=== PATIENT | female | born 1960 | race Caucasian/White ===

== ENCOUNTER 2017-08-10 15:31 | Emergency (ER) | payer OTHER ==
[~2017-08-10] VITALS: Ht 162.6 cm; Wt 70.0 kg
[~2017-08-10 15:31] MED LIST: AMBI10TA PO; LISI-515 PO; XANA2TAB2 PO
[2017-08-10 15:44] VITALS: BP 152/84; PULSE 89; RESP 18; TEMP 97.6; O2SAT 92
[2017-08-10] MEDS ORDERED: SODIUM CHLOR 0.9% 1000 ML INJ 1,000 ML IV ONE ×2 (15:47→16:00)
[2017-08-10 15:58] VITALS: BP 152/84; PULSE 91; RESP 18; TEMP 97.6; O2SAT 97
[2017-08-10 16:00] VITALS: BP 152/84; PULSE 91; RESP 18; TEMP 97.6; O2SAT 97
[2017-08-10] MEDS ORDERED: ACTIVATED CHARCOAL LIQUID 25 GM/120 ML BTL PO/NG ONE (16:00)
[2017-08-10] MEDS ORDERED: SODIUM CHLORIDE 0.9% FLUSH 10 ML FLUSH IVF PRN (16:00)
--- NOTE | 2017-08-10 16:16 | PD ---
HPI Chief Complaint: OD/ Ingestion Time Seen by Provider: 15:43 Travel History International Travel<30 days: No Contact w/Intl Traveler<30days: No Traveled to known affect area: No History of Present Illness HPI The patient is 56 years old and arrives by EMS. She ingested an unknown quantity of Xanax. The prescription bottle was for quantity of 60 tablets. The dose was 2 mg each. The patient here states she might have ingested them at 3 PM however does not answer questions. She denies alcohol abuse however EMS reports she vomited what appeared to be wine emesis. Patient states kill me here in the emergency department e. She is a Bro Act. History is limited in this scenario. PFSH Past Medical History Anxiety: Yes Depression: Yes Diminished Hearing: No Hypertension: Yes Insomnia: Yes Tetanus Vaccination: Unknown Influenza Vaccination: No ?: Not Menopausal: Yes Ovarian Cysts: Yes (R) Dilation and Curettage (D&C): Yes Past Surgical History Surgical History: No Previous Surgery Social History Alcohol Use: No (QUIT ~ 1 MONTH AGO; AVERAGED 2 BEERS Q OTHER DAY) Tobacco Use: Yes (1ppd) Substance Use: No Allergies-Medications (Allergen,Severity, Reaction): Coded Allergies: No Known Allergies (Unverified Adverse Reaction, Unknown, 08/10/17) Reported Meds & Prescriptions Reported Meds & Active Scripts Active Reported Ambien (Zolpidem Tartrate) 10 Mg Tab 10 Mg PO HS PRN Xanax (Alprazolam) 2 Mg Tab 2 Mg PO BID PRN Lisinopril 20 Mg Tab 20 Mg PO DAILY Review of Systems Except as stated in HPI: all other systems reviewed are Neg General / Constitutional: No: Fever Physical Exam Narrative GENERAL: 56-year-old female moderate distress secondary to drug overdose Vital Signs Date Time Temp Pulse Resp B/P (MAP) Pulse Ox O2 Delivery O2 Flow Rate FiO2 08/10/17 16:00 97.6 91 18 152/84 (106) 97 Nasal Cannula 3.00 08/10/17 15:58 97.6 91 18 152/84 (106) 97 Nasal Cannula 3.00 08/10/17 15:53 91 18 95 Nasal Cannula 3.00 08/10/17 15:44 97.6 89 18 152/84 (106) 92 SKIN: Warm and dry. HEAD: Atraumatic. Normocephalic. EYES: Pupils equal and round. No scleral icterus. No injection or drainage. ENT: No nasal bleeding or discharge. Mucous membranes pink and moist. NECK: Trachea midline. No JVD. CARDIOVASCULAR: Regular rate and rhythm. RESPIRATORY: No accessory muscle use. Clear to auscultation. Breath sounds equal bilaterally. GASTROINTESTINAL: Abdomen soft, non-tender, nondistended. Hepatic and splenic margins not palpable. MUSCULOSKELETAL: Extremities without clubbing, cyanosis, or edema. No obvious deformities. NEUROLOGICAL: Patient is awake and answer some questions. Her speech is slurred consistent with alcohol intoxication. She is moving all extremities normally. There is no focal cranial nerve deficit. memory is preserved. PSYCHIATRIC: Patient is a Bro Act. Positive suicide attempt with overdose of Xanax. Data Data Last Documented VS Vital Signs Date Time Temp Pulse Resp B/P (MAP) Pulse Ox O2 Delivery O2 Flow Rate FiO2 08/11/17 17:05 97.9 85 16 133/81 (98) 99 Room Air 08/10/17 16:00 3.00 Orders Orders Electrocardiogram (08/10/17 15:47) Complete Blood Count With Diff (08/10/17 15:47) Comprehensive Metabolic Panel (08/10/17 15:47) Prothrombin Time / Inr (Pt) (08/10/17 15:47) Act Partial Throm Time (Ptt) (08/10/17 15:47) Urinalysis - C+S If Indicated (08/10/17 15:47) Blood Glucose (08/10/17 15:47) Iv Access Insert/Monitor (08/10/17 15:47) Cath For Specimen (08/10/17 15:47) Ecg Monitoring (08/10/17 15:47) Oximetry (08/10/17 15:47) Psych Screen (08/10/17 15:47) Charcoal Activated Liq (Actidose-Aqua Li (08/10/17 16:00) Sodium Chloride 0.9% Flush (Ns Flush) (08/10/17 16:00) Sodium Chlor 0.9% 1000 Ml Inj (Ns 1000 M (08/10/17 15:47) Drug Screen, Random Urine (08/10/17 15:47) Alcohol (Ethanol) (08/10/17 15:47) Salicylates (Aspirin) (08/10/17 15:47) Tylenol (Acetaminophen) (08/10/17 15:47) Sodium Chlor 0.9% 1000 Ml Inj (Ns 1000 M (08/10/17 16:00) Restraints Non-Violent RUDY.Q3H (08/10/17 18:01) Olanzapine Inj (Zyprexa Inj) (08/10/17 18:45) Ondansetron Odt (Zofran Odt) (08/11/17 03:45) Ed Discharge Order (08/11/17 16:02) Labs Laboratory Tests Test 08/10/17 16:15 08/10/17 16:30 White Blood Count 9.5 TH/MM3 Red Blood Count 4.90 MIL/MM3 Hemoglobin 14.7 GM/DL Hematocrit 43.4 % Mean Corpuscular Volume 88.6 FL Mean Corpuscular Hemoglobin 30.1 PG Mean Corpuscular Hemoglobin Concent 34.0 % Red Cell Distribution Width 13.8 % Platelet Count 277 TH/MM3 Mean Platelet Volume 8.5 FL Neutrophils (%) (Auto) 51.8 % Lymphocytes (%) (Auto) 38.0 % Monocytes (%) (Auto) 6.5 % Eosinophils (%) (Auto) 2.5 % Basophils (%) (Auto) 1.2 % Neutrophils # (Auto) 4.9 TH/MM3 Lymphocytes # (Auto) 3.6 TH/MM3 Monocytes # (Auto) 0.6 TH/MM3 Eosinophils # (Auto) 0.2 TH/MM3 Basophils # (Auto) 0.1 TH/MM3 CBC Comment DIFF FINAL Differential Comment Prothrombin Time 11.3 SEC Prothromb Time International Ratio 1.1 RATIO Activated Partial Thromboplast Time 24.7 SEC Blood Urea Nitrogen 9 MG/DL Creatinine 1.07 MG/DL Random Glucose 75 MG/DL Total Protein 7.5 GM/DL Albumin 4.6 GM/DL Calcium Level 8.4 MG/DL Alkaline Phosphatase 76 U/L Aspartate Amino Transf (AST/SGOT) 27 U/L Alanine Aminotransferase (ALT/SGPT) 31 U/L Total Bilirubin 0.5 MG/DL Sodium Level 136 MEQ/L Potassium Level 3.4 MEQ/L Chloride Level 103 MEQ/L Carbon Dioxide Level 19.9 MEQ/L Anion Gap 13 MEQ/L Estimat Glomerular Filtration Rate 53 ML/MIN Salicylates Level 2.2 MG/DL Acetaminophen Level LESS THAN 2.0 MCG/ML Ethyl Alcohol Level 328 MG/DL Urine Color LIGHT-YELLOW Urine Turbidity CLEAR Urine pH 7.0 Urine Specific [place] 1.005 Urine Protein NEG mg/dL Urine Glucose (UA) NEG mg/dL Urine Ketones NEG mg/dL Urine Occult Blood NEG Urine Nitrite NEG Urine Bilirubin NEG Urine Urobilinogen LESS THAN 2.0 MG/DL Urine Leukocyte Esterase NEG Urine RBC LESS THAN 1 /hpf Urine WBC LESS THAN 1 /hpf Microscopic Urinalysis Comment CATH-CULT NOT IND Urine Opiates Screen NEG Urine Barbiturates Screen NEG Urine Amphetamines Screen NEG Urine Benzodiazepines Screen POS Urine Cocaine Screen NEG Urine Cannabinoids Screen NEG MDM Medical Decision Making Medical Screen Exam Complete: Yes Emergency Medical Condition: Yes Medical Record Reviewed: Yes Differential Diagnosis Altered mental status/psychosis due to infection/environmental exposure/ metabolic abnormality, polypharmacy, alcohol abuse/intoxication, illicit or prescribed drug abuse, malingering/secondary gain, non-organic psychiatric disease Narrative Course CBC & BMP Diagram 08/10/17 16:15 Total Protein 7.5, Albumin 4.6, Calcium Level 8.4 L, Alkaline Phosphatase 76, Aspartate Amino Transf (AST/SGOT) 27, Alanine Aminotransferase (ALT/SGPT) 31, Total Bilirubin 0.5 Tox screen is positive for benzos Ethyl alcohol is 328 Tylenol is less than 2 Salicylates is 2.2 Urinalysis shows no UTI Patient is intoxicated with alcohol and benzodiazepines. At this point inpatient admission considered to be low yield however she is still fairly altered from the ingestion. Ongoing monitoring the ED with pending psych screen is considered most reasonable disposition for the patient. At approximately 6 PM the patient became quite agitated here in the ER. IM Zyprexa was required in addition a soft restraints. Certainly the patient is no longer suffering from sedation due to benzodiazepines and/or alcohol. At this moment the main issue is controlling the patient's agitation. Case will be discussed with the oncoming provider at 7:00PM, Dr. Chun. Diagnosis Primary Impression: Overdose of benzodiazepine Qualified Codes: T42.4X2A - Poisoning by benzodiazepines, intentional self- harm, initial encounter Additional Impressions: Anxiety Agitation Admitting Information Admitting Physician Requests: Admit Torres Cote MD August 10, 2017 16:16
[2017-08-10 16:51] LABS: AUTOMATED NEUTROPHIL # 4.9 TH/MM3 (1.8-7.7); BASOPHIL # 0.1 TH/MM3 (0-0.2); BASOPHIL % 1.2 % (0.0-2.0); EOSINOPHIL # 0.2 TH/MM3 (0-0.4); EOSINOPHIL % 2.5 % (0.0-4.0); HEMATOCRIT 43.4 % (35.0-46.0); HEMOGLOBIN 14.7 GM/DL (11.6-15.3); LYMPHOCYTE # 3.6 TH/MM3 (1.0-4.8); MEAN CELL VOLUME 88.6 FL (80.0-100.0); MEAN CORPUSCULAR HEMOGLOBIN 30.1 PG (27.0-34.0); MEAN PLATELET VOLUME 8.5 FL (7.0-11.0); MONO % 6.5 % (0.0-8.0); MONOCYTE # 0.6 TH/MM3 (0-0.9); NEUT % 51.8 % (16.0-70.0); PLATELET COUNT 277 TH/MM3 (150-450); RED CELL DISTRIBUTION WIDTH 13.8 % (11.6-17.2); WHITE BLOOD COUNT 9.5 TH/MM3 (4.0-11.0)
[2017-08-10 16:53] LABS: BILIRUBIN, URINE NEG (NEG); BLOOD, URINE NEG (NEG); GLUCOSE,URINE NEG (NEG); KETONE, URINE NEG (NEG); NITRITE,URINE NEG (NEG); URINE COLOR LIGHT-YELLOW (YELLW/STRAW); URINE LEUKOCYTE ESTERASE NEG (NEG)
[2017-08-10 17:05] LABS: ALBUMIN 4.6 GM/DL (3.4-5.0); ALT (GPT) 31 U/L (10-53); AST (GOT) 27 U/L (15-37); BICARBONATE 19.9 MEQ/L (21.0-32.0); BLOOD UREA NITROGEN 9 MG/DL (7-18); CALCIUM 8.4 MG/DL (8.5-10.1); CHLORIDE 103 MEQ/L (98-107); CREATININE 1.07 MG/DL (0.50-1.00); GLOMERULAR FILTRATION RATE 53 ML/MIN (>89); GLUCOSE,RANDOM 75 MG/DL (74-106); SODIUM (NA) 136 MEQ/L (136-145)
[2017-08-10 17:10] LABS: INTERNATIONAL NORMALIZED RATIO 1.1 RATIO; PROTHROMBIN TIME - PATIENT 11.3 SEC (9.8-11.6)
[2017-08-10 17:15] LABS: ALKALINE PHOSPHATASE 76 U/L (45-117); TOTAL BILIRUBIN ADULT 0.5 MG/DL (0.2-1.0); TOTAL PROTEIN 7.5 GM/DL (6.4-8.2)
[2017-08-10 17:18] LABS: ACETAMINOPHEN LESS THAN 2.0 MCG/ML (10.0-30.0)
[2017-08-10 18:10] VITALS: BP 132/81; PULSE 90; RESP 20; O2SAT 96
[2017-08-10] MEDS ORDERED: OLANZapine IM 10 MG VIAL IM ONE (18:45)
--- NOTE | 2017-08-10 20:58 | PD ---
Data Data Last Documented VS Vital Signs Date Time Temp Pulse Resp B/P (MAP) Pulse Ox O2 Delivery O2 Flow Rate FiO2 08/10/17 18:10 90 20 132/81 (98) 96 Room Air 08/10/17 16:00 97.6 3.00 Orders Orders Electrocardiogram (08/10/17 15:47) Complete Blood Count With Diff (08/10/17 15:47) Comprehensive Metabolic Panel (08/10/17 15:47) Prothrombin Time / Inr (Pt) (08/10/17 15:47) Act Partial Throm Time (Ptt) (08/10/17 15:47) Urinalysis - C+S If Indicated (08/10/17 15:47) Blood Glucose (08/10/17 15:47) Iv Access Insert/Monitor (08/10/17 15:47) Cath For Specimen (08/10/17 15:47) Ecg Monitoring (08/10/17 15:47) Oximetry (08/10/17 15:47) Psych Screen (08/10/17 15:47) Charcoal Activated Liq (Actidose-Aqua Li (08/10/17 16:00) Sodium Chloride 0.9% Flush (Ns Flush) (08/10/17 16:00) Sodium Chlor 0.9% 1000 Ml Inj (Ns 1000 M (08/10/17 15:47) Drug Screen, Random Urine (08/10/17 15:47) Alcohol (Ethanol) (08/10/17 15:47) Salicylates (Aspirin) (08/10/17 15:47) Tylenol (Acetaminophen) (08/10/17 15:47) Sodium Chlor 0.9% 1000 Ml Inj (Ns 1000 M (08/10/17 16:00) Restraints Non-Violent RUDY.Q3H (08/10/17 18:01) Olanzapine Inj (Zyprexa Inj) (08/10/17 18:45) Labs Laboratory Tests Test 08/10/17 16:15 08/10/17 16:30 White Blood Count 9.5 TH/MM3 Red Blood Count 4.90 MIL/MM3 Hemoglobin 14.7 GM/DL Hematocrit 43.4 % Mean Corpuscular Volume 88.6 FL Mean Corpuscular Hemoglobin 30.1 PG Mean Corpuscular Hemoglobin Concent 34.0 % Red Cell Distribution Width 13.8 % Platelet Count 277 TH/MM3 Mean Platelet Volume 8.5 FL Neutrophils (%) (Auto) 51.8 % Lymphocytes (%) (Auto) 38.0 % Monocytes (%) (Auto) 6.5 % Eosinophils (%) (Auto) 2.5 % Basophils (%) (Auto) 1.2 % Neutrophils # (Auto) 4.9 TH/MM3 Lymphocytes # (Auto) 3.6 TH/MM3 Monocytes # (Auto) 0.6 TH/MM3 Eosinophils # (Auto) 0.2 TH/MM3 Basophils # (Auto) 0.1 TH/MM3 CBC Comment DIFF FINAL Differential Comment Prothrombin Time 11.3 SEC Prothromb Time International Ratio 1.1 RATIO Activated Partial Thromboplast Time 24.7 SEC Blood Urea Nitrogen 9 MG/DL Creatinine 1.07 MG/DL Random Glucose 75 MG/DL Total Protein 7.5 GM/DL Albumin 4.6 GM/DL Calcium Level 8.4 MG/DL Alkaline Phosphatase 76 U/L Aspartate Amino Transf (AST/SGOT) 27 U/L Alanine Aminotransferase (ALT/SGPT) 31 U/L Total Bilirubin 0.5 MG/DL Sodium Level 136 MEQ/L Potassium Level 3.4 MEQ/L Chloride Level 103 MEQ/L Carbon Dioxide Level 19.9 MEQ/L Anion Gap 13 MEQ/L Estimat Glomerular Filtration Rate 53 ML/MIN Salicylates Level 2.2 MG/DL Acetaminophen Level LESS THAN 2.0 MCG/ML Ethyl Alcohol Level 328 MG/DL Urine Color LIGHT-YELLOW Urine Turbidity CLEAR Urine pH 7.0 Urine Specific [place] 1.005 Urine Protein NEG mg/dL Urine Glucose (UA) NEG mg/dL Urine Ketones NEG mg/dL Urine Occult Blood NEG Urine Nitrite NEG Urine Bilirubin NEG Urine Urobilinogen LESS THAN 2.0 MG/DL Urine Leukocyte Esterase NEG Urine RBC LESS THAN 1 /hpf Urine WBC LESS THAN 1 /hpf Microscopic Urinalysis Comment CATH-CULT NOT IND Urine Opiates Screen NEG Urine Barbiturates Screen NEG Urine Amphetamines Screen NEG Urine Benzodiazepines Screen POS Urine Cocaine Screen NEG Urine Cannabinoids Screen NEG MDM Supervised Visit with MARIN: No Narrative Course Patient seen and examined by me in addition to Dr. Royce Cote, the patient is now stating that she took 8 mg of alprazolam. A 2100 the patient was reassessed and is now clinically sober speaking in full sentences without any slurred speech, had significant alcohol in her system, my opinion she is medically stable for placement into [facility] for psychiatric evaluation. She has no physical complaints at this time, she was examined with female nurse extract mixer present all times, she has a reassuring physical exam GENERAL: Well-nourished, well-developed patient. SKIN: Focused skin assessment warm/dry. No bruising or laceration seen or person HEAD: Normocephalic. Atraumatic EYES: No scleral icterus. No injection or drainage. NECK: Supple, trachea midline. No JVD or lymphadenopathy. CARDIOVASCULAR: Regular rate and rhythm without murmurs, gallops, or rubs. RESPIRATORY: Breath sounds equal bilaterally. No accessory muscle use. GASTROINTESTINAL: Abdomen soft, non-tender, nondistended. MUSCULOSKELETAL: No cyanosis, or edema. Neurologic: Alert and awake and oriented, moves all 4 extremities to commands, cranial nerves II through XII grossly intact, ambulates with an even narrow- base gait. BACK: Nontender without obvious deformity. No CVA tenderness. Patient at this time is is medically cleared for psychiatric evaluation. Diagnosis Primary Impression: Overdose of benzodiazepine Qualified Codes: T42.4X2A - Poisoning by benzodiazepines, intentional self- harm, initial encounter Additional Impressions: Anxiety Agitation Condition: Stable Anselmo Chun MD August 10, 2017 20:58
[2017-08-10 22:00] VITALS: BP 122/63; PULSE 82; RESP 19; O2SAT 97
[2017-08-11] MEDS ORDERED: ONDANSETRON ODT 4 MG TAB PO ONE (03:45)
[2017-08-11 09:05] VITALS: BP 132/65; PULSE 76; RESP 18; O2SAT 98
--- NOTE | 2017-08-11 11:34 | EKG ---
Date Performed: 08/10/2017 Time Performed: 16:26:32 PTAGE: 56 years EKG: Sinus rhythm LOW QRS VOLTAGE IN PRECORDIAL LEADS NONSPECIFIC ST & T-WAVE ABNORMALITY BORDERLINE ECG NO PREVIOUS TRACING DOCTOR: Mehdi Sofia Interpretating Date/Time 08/11/2017 11:32:57
--- NOTE | 2017-08-11 16:02 | PD ---
Physical Exam Time Seen by Provider: 16:00 KARYN Ludwig has evaluated patient, lifted the Bro act and cleared the patient for discharge. Data Data Last Documented VS Vital Signs Date Time Temp Pulse Resp B/P (MAP) Pulse Ox O2 Delivery O2 Flow Rate FiO2 08/11/17 09:05 76 18 132/65 (87) 98 Room Air 08/10/17 16:00 97.6 3.00 Orders Orders Electrocardiogram (08/10/17 15:47) Complete Blood Count With Diff (08/10/17 15:47) Comprehensive Metabolic Panel (08/10/17 15:47) Prothrombin Time / Inr (Pt) (08/10/17 15:47) Act Partial Throm Time (Ptt) (08/10/17 15:47) Urinalysis - C+S If Indicated (08/10/17 15:47) Blood Glucose (08/10/17 15:47) Iv Access Insert/Monitor (08/10/17 15:47) Cath For Specimen (08/10/17 15:47) Ecg Monitoring (08/10/17 15:47) Oximetry (08/10/17 15:47) Psych Screen (08/10/17 15:47) Charcoal Activated Liq (Actidose-Aqua Li (08/10/17 16:00) Sodium Chloride 0.9% Flush (Ns Flush) (08/10/17 16:00) Sodium Chlor 0.9% 1000 Ml Inj (Ns 1000 M (08/10/17 15:47) Drug Screen, Random Urine (08/10/17 15:47) Alcohol (Ethanol) (08/10/17 15:47) Salicylates (Aspirin) (08/10/17 15:47) Tylenol (Acetaminophen) (08/10/17 15:47) Sodium Chlor 0.9% 1000 Ml Inj (Ns 1000 M (08/10/17 16:00) Restraints Non-Violent RUDY.Q3H (08/10/17 18:01) Olanzapine Inj (Zyprexa Inj) (08/10/17 18:45) Ondansetron Odt (Zofran Odt) (08/11/17 03:45) Labs Laboratory Tests Test 08/10/17 16:15 08/10/17 16:30 White Blood Count 9.5 TH/MM3 Red Blood Count 4.90 MIL/MM3 Hemoglobin 14.7 GM/DL Hematocrit 43.4 % Mean Corpuscular Volume 88.6 FL Mean Corpuscular Hemoglobin 30.1 PG Mean Corpuscular Hemoglobin Concent 34.0 % Red Cell Distribution Width 13.8 % Platelet Count 277 TH/MM3 Mean Platelet Volume 8.5 FL Neutrophils (%) (Auto) 51.8 % Lymphocytes (%) (Auto) 38.0 % Monocytes (%) (Auto) 6.5 % Eosinophils (%) (Auto) 2.5 % Basophils (%) (Auto) 1.2 % Neutrophils # (Auto) 4.9 TH/MM3 Lymphocytes # (Auto) 3.6 TH/MM3 Monocytes # (Auto) 0.6 TH/MM3 Eosinophils # (Auto) 0.2 TH/MM3 Basophils # (Auto) 0.1 TH/MM3 CBC Comment DIFF FINAL Differential Comment Prothrombin Time 11.3 SEC Prothromb Time International Ratio 1.1 RATIO Activated Partial Thromboplast Time 24.7 SEC Blood Urea Nitrogen 9 MG/DL Creatinine 1.07 MG/DL Random Glucose 75 MG/DL Total Protein 7.5 GM/DL Albumin 4.6 GM/DL Calcium Level 8.4 MG/DL Alkaline Phosphatase 76 U/L Aspartate Amino Transf (AST/SGOT) 27 U/L Alanine Aminotransferase (ALT/SGPT) 31 U/L Total Bilirubin 0.5 MG/DL Sodium Level 136 MEQ/L Potassium Level 3.4 MEQ/L Chloride Level 103 MEQ/L Carbon Dioxide Level 19.9 MEQ/L Anion Gap 13 MEQ/L Estimat Glomerular Filtration Rate 53 ML/MIN Salicylates Level 2.2 MG/DL Acetaminophen Level LESS THAN 2.0 MCG/ML Ethyl Alcohol Level 328 MG/DL Urine Color LIGHT-YELLOW Urine Turbidity CLEAR Urine pH 7.0 Urine Specific [place] 1.005 Urine Protein NEG mg/dL Urine Glucose (UA) NEG mg/dL Urine Ketones NEG mg/dL Urine Occult Blood NEG Urine Nitrite NEG Urine Bilirubin NEG Urine Urobilinogen LESS THAN 2.0 MG/DL Urine Leukocyte Esterase NEG Urine RBC LESS THAN 1 /hpf Urine WBC LESS THAN 1 /hpf Microscopic Urinalysis Comment CATH-CULT NOT IND Urine Opiates Screen NEG Urine Barbiturates Screen NEG Urine Amphetamines Screen NEG Urine Benzodiazepines Screen POS Urine Cocaine Screen NEG Urine Cannabinoids Screen NEG MDM Supervised Visit with MARIN: No Narrative Course KARYN Fowler has evaluated patient, lifted the Bro act and cleared the patient for discharge. Patient contracts safety. Denies suicidal or homicidal ideations. Patient will be provided community resource packet to [facility] for follow-up. Has friends and family for support. Patient was medically cleared by alternate provider prior to psych screening. Patient has been evaluated by psychiatry and and is now cleared for discharge. Diagnosis Primary Impression: Overdose of benzodiazepine Qualified Codes: T42.4X2A - Poisoning by benzodiazepines, intentional self- harm, initial encounter Additional Impressions: Anxiety Agitation Referrals: CARMINA (Out patient) [facility] Primary Care Physician Psychiatrist [facility] Patient Instructions: Abuse of Alcohol (ED), Alcohol Dependence (ED), Alcohol Intoxication (ED), Anxiety (ED), Depression (ED), General Instructions, Polysubstance Abuse (ED) Additional Instruction: Contract safety to your self and others Stop using drugs Follow-up with psychiatry Follow-up with primary care provider Follow-up with Eric Bell Return to the emergency department immediately with worsening of symptoms Med/Other Pt SpecificInfo: No Change to Meds, No Meds Exist/No RX given Disposition: 01 DISCHARGE HOME Condition: Stable Reyna Menon August 11, 2017 16:02
[2017-08-11 17:05] VITALS: BP 133/81; PULSE 85; RESP 16; TEMP 97.9; O2SAT 99
--- NOTE | 2017-08-11 18:46 | PD ---
History of Present Illness Chief Complaint: OD/ Ingestion Time Seen by Provider: 15:30 Travel History International Travel<30 Days: No Contact w/Intl Traveler<30days: No Known affected area: No Legal Status Legal Status: Bro Act Bro Act Signed By: EMS History of Present Illness: History of Present Illness HPI The patient is 56 years old , female with reported history of anxiety, alcohol abuse, who presents to [facility] ED under a Bro act alleging the patient ingested an unknown quantity of Xanax as a suicide attempt. At the time that the patient was placed under Bro act she was intoxicated. On arrival here to the ED her blood alcohol level was 328. The prescription bottle was for 60 tablets of 2 mg each Xanax which was filled on 428. She reported that she might have ingested the tablets at 3 PM but provided no other information. Patient was allowed to sober up clinically and safe environment and she presented no behavioral concerns and no suicidality. Electronic medical record is reviewed. No previous contact with [facility] psychiatry Department. Labs are further reviewed. Positive toxicology for benzos which are prescribed. Patient is seen. Case discussed with nursing staff. Patient is alert, oriented , dressed in [facility] with appropriate hygiene. She is clinically sober. Affect is variable and tearful at times. Appropriate eye contact. Her speech is clear and logical, normal rate and tone. She does not appear to be experiencing any symptoms of withdrawal. Does not present any evidence of any hallucinations, no delusions, no paranoia. She states "I was drinking yesterday because I was feeling sad after I saw my son who is in a facility in [facility]. I do not know if I took the pills or not but I was not trying to kill myself." She does acknowledge that she feels overwhelmed with the care of her mother who is reported to have dementia. She also reports feeling sad over the of her son approximately 2 years ago and later the of her ex-. She denies current suicidal or homicidal ideation, intent or plan. She is evasive when I asked her who prescribes the Xanax for her and does not want to provide me with the name of the prescriber. [facility] Past Medical History Anxiety: Yes Depression: Yes Diminished Hearing: Yes (RIGHT EAR) Hypertension: Yes Insomnia: Yes Psychiatric: Yes (CLARI 2012) Tetanus Vaccination: < 5 Years Influenza Vaccination: No ?: Not Menopausal: Yes Ovarian Cysts: Yes (R) Dilation and Curettage (D&C): Yes Past Surgical History Surgical History: No Previous Surgery Appendectomy: No Section: No Hysterectomy: No Tonsillectomy: No Psychiatric History Psychiatric History Hx Psychiatric Treatment: DENIES any history of psychiatric hospitalization. Denies any previous suicide attempts. Denies that she sees a psychiatrist and gets her medication from her primary care physician. History of Inpatient Treatment: No Guns or firearms in home: No Social History Born and in [place]. Has been in [place] for many years. She is after having her . She has 1 son who is 26 years old and lives in a facility in [facility]. She currently lives with her mother and has been with her for 1-1/2 years. She takes care of her mother who is reported to have some type of dementia. 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 Hx Alcohol Use: Yes (PT STATES 1 BOTTLE OF WINE") Hx Tobacco Use: Yes Hx Substance Use: Yes (ETOH ABUSE 10 YRS) Substance Use Type: Alcohol (Has been sober for 2 years after history of alcohol abuse for many years. No AA), Benzos (Valium,Xanax) Hx of Substance Use Treatment: No Family Psychiatric History Son with schizophrenia Allergies-Medications (Allergen,Severity, Reaction): Coded Allergies: No Known Allergies (Unverified Adverse Reaction, Unknown, 08/10/17) Reported Meds & Prescriptions Reported Meds & Active Scripts Active Reported Ambien (Zolpidem Tartrate) 10 Mg Tab 10 Mg PO HS PRN Xanax (Alprazolam) 2 Mg Tab 2 Mg PO BID PRN Lisinopril 20 Mg Tab 20 Mg PO DAILY Review of Systems Psychiatric: COMPLAINS OF: Anxiety Except as stated in HPI: all other systems reviewed are Neg Mental Status Examination Appearance: Appropriate (In hospital attire) Consciousness: Alert Orientation: x4 Motor Activity: Normal gait Speech: Unremarkable Language: Adequate Fund of Knowledge: Adequate Attention and Concentration: Adequate Memory: Unremarkable Mood: Anxious Affect: Appropriate Thought Process & Associations: Intact, Logical, Goal directed Thought Content: Appropriate Hallucination Type: None Delusion Type: None Suicidal Ideation: No Suicidal Plan: No Suicidal Intention: No Homicidal Ideation: No Homicidal Plan: No Homicidal Intention: No Insight: Fair Judgment: Adequate [facility] Medical Decision Making Medical Record Reviewed: Yes Assessment/Plan The patient is 56 years old , female with reported history of anxiety, alcohol abuse, who presents to [facility] ED under a Bro act alleging the patient ingested an unknown quantity of Xanax as a suicide attempt. At the time that the patient was placed under Bro act she was intoxicated. On arrival here to the ED her blood alcohol level was 328. Patient was allowed to sober up clinically in secure environment and presented no behavioral concerns and no suicidality. She is cognitively intact. There is no evidence of unstable mental illness. It is questionable whether she took the amount of medication that is missing from her bottle. She denies any suicidal or homicidal ideation. She is requesting to be discharged because she takes care of her mom. She will follow up with her primary care physician Dr. Campa in the morning. This time the patient does not meet criteria to remain under the Bro act. The Bro act as lifted. I have advised her to remain abstinent from alcohol. Psychiatrically clear for discharge from the ED. Orders Orders Olanzapine Inj (Zyprexa Inj) (08/10/17 18:45) Ondansetron Odt (Zofran Odt) (08/11/17 03:45) Ed Discharge Order (08/11/17 16:02) Results Vital Signs Date Time Temp Pulse Resp B/P (MAP) Pulse Ox O2 Delivery O2 Flow Rate FiO2 08/11/17 17:05 97.9 85 16 133/81 (98) 99 Room Air 08/11/17 09:05 76 18 132/65 (87) 98 Room Air 08/10/17 22:00 82 19 122/63 (82) 97 Room Air Diagnosis Primary Impression: alcohol abuse with intoxication Additional Impression: Anxiety Psychiatrically Cleared: Yes Referrals: [facility] (Out patient) [facility] Primary Care Physician Psychiatrist Ale [facility] Behavioral Departure Forms: Tests/Procedures Patient Instructions: General Instructions, Depression (ED), Alcohol Intoxication (ED), Abuse of Alcohol (ED), Polysubstance Abuse (ED), Anxiety (ED) , Alcohol Dependence (ED) Additional Instructions: Contract safety to your self and others Stop using drugs Follow-up with psychiatry Follow-up with primary care provider Follow-up with your PCP, Dr. Combs Return to the emergency department immediately with worsening of symptoms Disposition: 01 DISCHARGE HOME Condition: Stable Problem Qualifiers Janeth Serna August 11, 2017 18:46
== END 2017-08-11 18:02 | disposition home or self-care (01) ==
LOC: NEPC 15:31 → NEPJ 08-11 18:02
DX: T42.4X2A Poisoning by benzodiazepines, intentional self-harm, initial encounter (principal); F10.129 Alcohol abuse with intoxication, unspecified; F41.9 Anxiety disorder, unspecified; R94.31 Abnormal electrocardiogram [ECG] [EKG]; R45.1 Restlessness and agitation; F17.210 Nicotine dependence, cigarettes, uncomplicated; G47.00 Insomnia, unspecified; I10 Essential (primary) hypertension; Y90.8 Blood alcohol level of 240 mg/100 ml or more
CPT/HCPCS: 80053; 80307; 81001; 85025; 85610; 85730; 93005; 96360; 96372; 99285; J7030; P9612